=== PATIENT | female | born 1985 | race Hispanic/Latino ===

== ENCOUNTER 2019-09-23 06:44 | Emergency (ER) | payer MEDICAID, SELFPAY ==
[2019-09-23 06:48] VITALS: BP 172/124; PULSE 89; RESP 18; TEMP 35.8; O2SAT 98; BMI 39.4
--- NOTE | 2019-09-23 07:02 | CT_ITS ---
STUDY: CT BRAIN WITHOUT CONTRAST REASON FOR EXAM: Female, 34 years old. HEADACHE RADIATION DOSAGE (If Supplied By Facility): CTDIvol = ( 44.99 ) mGy, DLP = ( 812.98 ) mGycm TECHNIQUE: Transaxial CT imaging of the brain was performed without administration of intravenous contrast material. Individualized dose optimization techniques were used for this CT. COMPARISON: No relevant priors. FINDINGS: Normal soft tissue structures. Normal calvarium. Normal size ventricles and extra-axial spaces for the patient''s age. Normal white matter tracts of the cerebral hemispheres. Normal basal ganglia and thalami. Normal brainstem. Normal cerebellum. There is no intracranial hemorrhage. There are no findings of an acute ischemic infarction. Normal visualized paranasal sinuses. CT/Brain/Head without Contrast IMPRESSION: Normal unenhanced CT scan of the brain. Electronically Signed: Murray Guerra MD at 7:40 EDT , Service support ,
--- NOTE | 2019-09-23 07:03 | ED.DCSUM_ITS ---
- ER Visit Summary Date of Service: 09/23/19 Chief Complaint: Posterior occipital headache History of Present Illness: The patient is a 34 F past medical history of glaucoma and recently had COVID about a month or so ago. 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 Patient states she was told to get a sleep study and just got busy with her life and never followed up on that. States she woke up this morning her normal time which is 4:45 AM to get ready for work and had a posterior occipital headache. She had nausea and vomiting x1. She has had this happen before. She does not get frequent headaches though. She said she woke up but did not wake up because the headache. She denied any trouble moving her arms or legs. Said the headache is resolving. Initially was a 4 out of 10 its improving. She has not taken any medication. There is no family history of headaches. There is no family history of brain aneurysms nor intracranial bleeds. She has never been diagnosed with any type of cancer. She denies any recent head trauma. She has had no fever or neck pain. Physical Examination: Young female no acute distress vital signs are stable and afebrile. Initial blood pressure is elevated at 172/124. She is never been told she has high blood pressure and states when she is gone to the doctors her pressures always been good. HEENT exam unremarkable. Pupils round reactive light. Right eye is cloudy secondary to her history of glaucoma. No facial droop. Normal speech. No signs of trauma to her face or scalp. No tenderness or swelling. Neck nontender. No meningismus. Able to flex and touch her chin to chest. Lungs clear to auscultation. Heart regular rhythm no murmur. Abdomen soft nontender normal bowel sounds. Patient is moving all 4 extremities. Neurovascularly intact. 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 Dorsi plantarflexion intact. Neurologically she is awake and alert with no focal motor deficits. NIH score is 0. Fingertip to nose within normal limits. Test Results: CAT scan of the brain without contrast was reviewed by me and read by the radiologist as normal. No signs of acute intracranial bleed or other acute abnormalities. Emergency Department Course and Treatment: Patient's exam is basically unremarkable and neurologically intact. I will obtain a CAT scan of the brain due to her elevated blood pressure and significant headache. This does however appear to be resolving. Patient be turned over to the day physician. As long as the CAT scan is unremarkable and her exam remains normal she can be discharged to home. Patient did eventually take some Tylenol. On repeat exam at 7 AM and 743 she is doing well. Neurologic exam remains normal. Her blood pressure keeps coming down on its own. She knows to follow-up to have that rechecked. Treatment Plan: Outpatient follow-up with her primary care physician at the [facility]. She needs to be evaluated for obstructive sleep apnea and needs a sleep study. She also needs her vital signs rechecked to ensure that she is not developing hypertension. Disposition: Discharge Impression: Acute cephalgia of uncertain etiology Elevated blood pressure rule out hypertension This note was generated with [employer] dictation software. It may contain incorrect words, spelling, and punctuation that were not noted in review of the chart prior to signing ED Disposition - Plan for ED Patient: Disposition: Home or Assisted Living Instructions: ED Headache Unspecified Referrals: Chuy Macias MD [NON-STAFF] - As soon as possible Additional Instructions: Follow up with your primary care physician or whoever you are assigned to at the [facility] You need further evaluation for possible sleep apnea with a sleep study. You also need recurrent blood pressure checks due to your blood pressure being elevated today we want to ensure you are not developing hypertension.
[2019-09-23 07:07] VITALS: BP 149/109
--- NOTE | 2019-09-23 07:20 | DCINST.ED_ITS ---
ED Disposition - Plan for ED Patient: Disposition: Home or Assisted Living Instructions: ED Headache Unspecified Referrals: Chuy Macias MD [NON-STAFF] - As soon as possible Additional Instructions: Follow up with your primary care physician or whoever you are assigned to at the [facility] You need further evaluation for possible sleep apnea with a sleep study. You also need recurrent blood pressure checks due to your blood pressure being elevated today we want to ensure you are not developing hypertension.
[2019-09-23 07:27] VITALS: BP 141/90
[2019-09-23] MEDS: Acetaminophen 500 MG Tablet 1000 MG PO (07:40)
[2019-09-23 07:55] VITALS: BP 138/99; PULSE 80; RESP 18; O2SAT 96
== END 2019-09-23 08:00 | disposition home or self-care (01) ==
LOC: ED 07:46
PROVIDERS: Emergency Provider Emergency Medicine
DX: R51 Headache (principal); R03.0 Elevated blood-pressure reading, without diagnosis of hypertension; R11.2 Nausea with vomiting, unspecified; H40.9 Unspecified glaucoma; Z86.19 Personal history of other infectious and parasitic diseases
CPT/HCPCS: 70450; 99283; A4216

== ENCOUNTER 2020-09-26 19:37 | Emergency (ER) | payer MEDICAID, SELFPAY ==
[2020-09-26 19:38] VITALS: BP 152/81; PULSE 118; RESP 18; TEMP 38.4; O2SAT 99; BMI 41.4
--- NOTE | 2020-09-26 20:12 | EX.ED.DYSGE1 ---
HPI History of Present Illness Chief Complaint: Dental Informant: patient Narrative Narrative: Patient is a 35-year-old female with a past medical history of hypertension who presents to the emergency department for dental pain, pain in her jaw that goes around her right ear. It does hurt to swallow. The pain goes down the right side of her neck. She has noticed some swelling. This has been present over the past 3 or 4 days. Today she had shaking chills and a fever. She has been taking [id number] anti-inflammatories which does not seem to be helping. She has had issues like this before in the past with her teeth on the other side. She denies any chest pain, shortness of breath or cough. No abdominal pain or nausea/vomiting. No change in bowel movements. No urinary symptoms. [facility] Medical History (Updated 09/26/20 @ 21:[address] Grey Rowland DO) Glaucoma Home Medications latanoprost 1 drp RIGHT EYE QHS 09/23/19 [History Last Taken Unknown] timolol maleate 1 drp RIGHT EYE BID 09/23/19 [History Last Taken Unknown] clindamycin HCl 450 mg PO TID 7 Days #63 cap 09/26/20 [Rx Last Taken Unknown] lisinopril 20 mg PO DAILY 09/26/20 [History Last Taken Unknown] spironolactone 25 mg PO DAILY 09/26/20 [History Last Taken Unknown] Allergy/AdvReac Type Severity Reaction Status Date / Time No Known Allergies Allergy Verified 09/26/20 19:40 Social History Smoking Status: Never smoker ROS ROS ED Eyes Eyes: Denies change in vision ENT ENT ED: Reports dental pain, ear pain, facial pain and neck pain; Denies epistaxis, neck mass or rhinorrhea Cardiovascular Cardiovascular: Denies chest pain or palpitations Respiratory/Chest Respiratory/Chest: Denies cough, dyspnea or dyspnea on exertion Gastrointestinal Gastrointestinal: Denies abdominal pain, diarrhea, nausea or vomiting Genitourinary Genitourinary ED: Denies dysuria, hematuria or urinary frequency Musculoskeletal Musculoskeletal: Denies back pain or neck pain Integumentary Denies rash Neurologic Neurologic: Denies dizziness, headache(s) or weakness EXAM Physical Exam Const Vital Signs: 09/26/20 19:38 09/26/20 20:33 09/26/20 21:28 Temperature 101.2 F H Temperature Source Temporal Pulse Rate 118 H 111 H Respiratory Rate 18 16 18 Blood Pressure 152/81 H 146/86 H Blood Pressure Mean 104 106 Pulse Ox 99 96 Oxygen Delivery Method Room Air Room Air 09/26/20 21:30 Temperature 102.5 F H Temperature Source Oral Pulse Rate 110 H Respiratory Rate 18 Blood Pressure 146/86 H Blood Pressure Mean 106 Pulse Ox 95 Oxygen Delivery Method Room Air Positive well nourished and well developed General Appearance ED: well developed and NAD HEENT Reports normocephalic, head/scalp atraumatic, TM's clear, TM's normal bilaterally and moist mucous membranes HEENT Narrative: Oropharynx is clear. No tonsillar abscess appreciated. Uvula midline. Voice is not hoarse. No significant mass or swelling appreciated. She does have some tenderness along the right cervical chain as well as the right maxilla. Single enlarged lymph node on the right. No significant submandibular swelling. No pain over mastoid process. No external ear changes. Tympanic Membrane ED: Yes TM's clear Eyes PERRL and EOMs intact bilaterally Neck no lymphadenopathy and supple Chest Wall inspection of chest normal Resp normal respiratory effort and clear to auscultation bilaterally Auscultation: Negative for rales, rhonchi or wheezes Cardio regular rhythm and no murmurs GI normal to inspection, nondistended, normoactive bowel sounds and non-tender Palpation: soft; Negative for guarding or rebound tenderness present Back/Spine no CVA tenderness Extremity normal to inspection General Extremety ED: Negative for edema or tenderness General Extremity: Negative for edema Neuro CN's II-XII intact bilaterally and no sensory deficits noted Sensorium / Orientation: alert Motor Exam: strength 5/5 throughout Psych mental status grossly normal Skin no rashes or lesions noted MDM MDM MDM Narrative Medical decision making narrative: Patient presents to the ED for dental pain. The pain does wrap around her right cheek and down her right neck. She has felt some swelling. She developed a fever today. Upon arrival to the emerge department she is febrile and tachycardic. The rest of her vitals are within normal limits. Patient is a very benign physical exam. No significant swelling of the oropharynx. Will check basic lab work and start IV fluids and give a dose of Tylenol. She is started on IV antibiotics with clindamycin. I do not think CT scan of the head and neck is indicated at this time as she has no hard signs for acute abnormality. No evidence of peritonsillar, retropharyngeal abscess. No evidence of David's. Strep throat swab being obtained. Patient's lab work did not reveal a significant abnormality. She does have a high white blood cell count. Lactic acid within normal limits. On reexamination she is resting comfortably. She is feeling better. We will treat this with oral antibiotics as an outpatient. She understands that she develops any significant oral swelling, swelling under her jaw she needs to return to the emergency department immediately. She otherwise needs to follow-up with a dentist. She is given a referral sheet. Patient understands and is agreeable this plan. Discharged home in stable condition. All questions were answered. Lab Data Labs: Laboratory Results - last 24 hr 09/26/20 09/26/20 09/26/20 20:10 20:10 20:10 WBC 9.0 RBC 4.27 Hgb 12.7 Hct 38.4 MCV 89.9 MCH 29.7 MCHC 33.1 RDW Std Deviation 42.2 RDW Coeff of [place] 13.0 Plt Count 325 MPV 9.2 Immature Gran % (Auto) 0.300 Neut % (Auto) 84.8 H Lymph % (Auto) 10.1 L [place] % (Auto) 4.2 Eos % (Auto) 0.3 Baso % (Auto) 0.3 Absolute Neuts (auto) 7.6 Absolute Lymphs (auto) 0.91 Nucleated RBC % 0 Sodium 137 Potassium 4.0 Chloride 104 Carbon Dioxide 27.0 Anion Gap 6 BUN 10 Creatinine 0.73 Estim Creat Clear Calc 99.74 Est GFR (MDRD) Af Amer 116 Est GFR (MDRD) Non-Af 96 BUN/Creatinine Ratio 13.7 Glucose 99 Lactic Acid 1.3 Calcium 9.4 Discharge Plan Triage Chief Complaint: Dental ED Provider: Grey Rowland Dx/Rx/DC Orders Clinical Impression: Dental abscess, Fever Instructions: Dental Abscess, ED Fever Control (Adult) Prescriptions: New clindamycin HCl 150 mg capsule 450 mg PO TID 7 Days Qty: 63 RF: 0 No Action latanoprost 1 DROP bottle 1 drp RIGHT EYE QHS RF: 0 timolol maleate 1 DROP drops 1 drp RIGHT EYE BID RF: 0 lisinopril 20 mg Tablet 20 mg PO DAILY RF: 0 spironolactone 25 mg Tablet 25 mg PO DAILY RF: 0 Primary Care Provider: Care Physician,No Primary Referrals: Care Physician,No Primary [Primary Care Provider] - Disposition Disposition: Home, self care
[2020-09-26 20:21] LABS: Absolute Lymphocyte Count 0.91 X10^3/uL (0.83-4.51); Absolute Neutrophil Count 7.6 X10^3/uL (2.0-7.7); Basophil# 0.03 X10^3/uL; Basophil% 0.3 % (0-1); Eosinophil# 0.03 X10^3/uL; Eosinophils% 0.3 % (0-5); Hematocrit 38.4 % (37-47); Hemoglobin 12.7 g/dL (12.0-15.0); Lymphocyte # 0.91 X10^3/ul (0.83-4.51); Lymphocyte % 10.1 % (19-41); Mean Corp Hgb Conc 33.1 g/dL (32-36); Mean Corpuscular Hgb 29.7 pg (27.0-32.0); Mean Corpuscular Volume 89.9 fL (81-99); Mean Platelet Vol. 9.2 fl (6.2-12.0); Monocyte# 0.38 X10^3/uL; Monocyte% 4.2 % (0-10); NRBC Flagged by Analyzer 0 % (0-5); Neutrophil # 7.62 X10^3/uL (2.7-7.7); Neutrophil % 84.8 % (47-70); Platelet Count 325 K/mm3 (150-450); RBC Distribution Width SD 42.2 fl (35.1-43.9); Red Blood Count 4.27 M/mm3 (4.2-5.4)
[2020-09-26] MEDS: Acetaminophen 325 MG Tablet 650 MG PO (20:31)
[2020-09-26] MEDS: 0.9% Normal Saline 1,000 ML 999 ML IV (20:32)
[2020-09-26 20:33] VITALS: RESP 16
[2020-09-26 20:35] LABS: Anion Gap 6 (5-15); BUN 10 mg/dL (7-18); BUN/Creat Ratio 13.7 RATIO (10-20); Calcium,Total 9.4 mg/dL (8.5-10.1); Chloride 104 mmol/L (98-107); Creatinine, Serum 0.73 mg/dL (0.55-1.02); EST Glomerular Filtration Rate 96 mL/min (>60); Est Glom Filt Rate - Afr Amer 116 mL/min (>60); Estimated Creatinine Clearance 99.74 ml/min; Glucose 99 mg/dL (74-106); Sodium Level 137 mmol/L (136-145)
[2020-09-26 20:43] LABS: Lactic Acid 1.3 mmol/L (0.4-1.9)
[2020-09-26 21:28] VITALS: BP 146/86; PULSE 111; RESP 18; O2SAT 96
[2020-09-26 21:30] VITALS: BP 146/86; PULSE 110; RESP 18; TEMP 39.2; O2SAT 95
--- NOTE | 2020-09-26 21:42 | CT_ITS ---
STUDY: CT SOFT TISSUE NECK WITH CONTRAST REASON FOR EXAM: Female, 35 years old. Dental pain, neck pain, fever RADIATION DOSAGE (If Supplied By Facility): CTDIvol = ( 18.45 ) mGy, DLP = ( 580.85 ) mGycm TECHNIQUE: The patient was scanned in a multi-detector CT scanner. High resolution transaxial imaging was performed following intravenous administration of IV 75mL [id number]-370. Sagittal and coronal images were reconstructed. Individualized dose optimization techniques were used for this CT. COMPARISON: None. FINDINGS: Normal bilateral parotid glands. Normal bilateral roving marker spaces. Normal bilateral parapharyngeal spaces. Normal bilateral carotid spaces. Normal bilateral sublingual and submandibular glands and spaces. Normal visualized nasopharynx. Normal retropharyngeal space. Normal perivertebral space. Normal visualized bilateral faucial tonsils. The visualized tongue, tongue base and oropharynx are normal. Borderline enlarged lymph nodes at the angle of mandible bilaterally. Mildly enlarged right submandibular lymph node measuring 1.2 cm. There is no demonstrated solid or cystic mass lesion. There is no abnormal contrast enhancement. Normal epiglottis, bilateral vallecula and hypopharynx. The pre-epiglottic and paraglottic adipose spaces are normal. Normal visualized bilateral piriform sinuses, aryepiglottic folds, vocal cords, and arytenoid-cricoid articulations. Normal subglottic trachea. 2.1 x 1.5 cm nodule right lobe of the thyroid gland. Normal visualized pulmonary apices. Moderate to severe right maxillary sinus mucosal thickening. Normal visualized cervical spine. Carious lesion right maxillary second premolar. There is a periapical abscess apex of the right first maxillary molar with a focal break in the buccal cortex sagittal image 37. There is probably mild extension of the abscess into the adjacent soft tissue axial image 77 series 2. Contained periapical abscess left maxillary first molar. Subcutaneous soft tissue stranding suggestive of cellulitis adjacent to the right lateral maxilla and mandible. CT/Soft Tissue Neck WITH Contrast IMPRESSION: Cellulitis within the subcutaneous soft tissue adjacent to the right lateral maxilla and mandible. Periapical abscess right maxillary first molar with a small break in the buccal cortex. There is probably mild extension of the abscess into the adjacent soft tissue. Moderate to severe right maxillary sinus mucosal thickening. Contained periapical abscess left maxillary first molar. Electronically Signed: Dewayne Delacruz MD at 23:41 EDT , Service support ,
[2020-09-26] MEDS: Ibuprofen 600 MG Tablet PO (21:47)
[2020-09-26 23:03] VITALS: BP 135/76; PULSE 115; RESP 16; TEMP 37.6; O2SAT 98
[2020-09-27 00:04] VITALS: BP 134/60; PULSE 108; RESP 18; O2SAT 98
== END 2020-09-27 00:05 | disposition home or self-care (01) ==
PROVIDERS: Emergency Provider Emergency Medicine
DX: K04.7 Periapical abscess without sinus (principal); I10 Essential (primary) hypertension; Z79.899 Other long term (current) drug therapy
CPT/HCPCS: 70491; 80048; 83605; 85025; 87040; 87880; 96365; 99283; J7030; J7050; Q9967; A4216